=== PATIENT | male | born 1990 | race Two or more races ===

== ENCOUNTER 2022-06-29 04:36 | Emergency (ER) | payer OTHER ==
[~2022-06-29] VITALS: Ht 185.4 cm; Wt 172.4 kg
[2022-06-29] MEDS ORDERED: COZAAR100 MG (05:06)
[2022-06-29] MEDS ORDERED: SYNTHROID50 MCG (05:06)
== END 2022-06-29 08:21 | disposition home or self-care (01) ==
LOC: ER 04:36
DX: A05.9 Bacterial foodborne intoxication, unspecified (principal); Z88.0 Allergy status to penicillin